=== PATIENT | female | born 1960 | race Caucasian/White ===

== ENCOUNTER 2022-01-18 22:14 | Inpatient (IN) | payer OTHER ==
[2022-01-18 22:45] LABS: Anisocytosis Slight; Basophils % (A) 0 %; Eosinophils # (A) 0.3 k/uL (0-0.7); Eosinophils % (A) 2 %; HCT 42.5 % (34.0-46.0); HGB 13.6 gm/dL (11.4-16.0); Hypochromasia Slight; Lymphocytes # (A) 0.8 k/uL (1.0-4.8); Lymphocytes % (A) 5 %; MCH 25.5 pg (25.0-35.0); MCHC 31.9 g/dL (31.0-37.0); Mean Platelet Volume 7.1; Monocytes # (A) 0.1 k/uL (0-1.0); Monocytes % (A) 1 %; Neutrophils % (A) 92 %; Platelet Count 321 k/uL (150-450); RBC 5.31 m/uL (3.80-5.40); RDW 16.4 % (11.5-15.5); WBC 15.2 k/uL (3.8-10.6)
[2022-01-18] MEDS ORDERED: NALOXONE 0.4 MG/ML 1 ML VIAL IV PRN (22:59)
--- NOTE | 2022-01-18 22:59 | ED ---
SOB HPI - General Chief Complaint: Shortness of Breath Stated Complaint: SOB, abn labs Time Seen by Provider: 01/18/22 22:20 Source: patient Mode of arrival: EMS Limitations: no limitations - History of Present Illness Initial Comments: 61-year-old female with past medical history of COPD, diabetes who presents to the emergency department as a transfer from [place]. She went into their facility earlier today stating that she was short of breath for the past couple of days. She has been using her nebulizer without any improvement in her sympto ms. She does not wear oxygen at home. She denies having any chest pain but admits to some chest pressure with her shortness of breath. No previous history of cardiac disease. At [facility] the patient was found to be hypoxic at 84%. She received 2 breathing treatments and 4 aspirins. The was found to have a troponin of 0.16. Due to N STEMI the patient was transferred for cardiology evaluation. Patient admits to improvement in her breathing. Currently on 2 L. Admits to chronic nonproductive cough. No fevers. No other alleviating, precipitating or modifying factors - Related Data Home Medications Medication Instructions Recorded Confirmed Albuterol Sulfate [Ventolin HFA] 2 puff INHALATION RT-Q4H PRN 01/19/22 01/19/22 Dextroamphetamine/Amphetamine 15 mg PO DAILY 01/19/22 01/19/22 [Adderall Xr 15 mg Capsule] Lurasidone [Latuda] 40 mg PO DAILY 01/19/22 01/19/22 Omeprazole Magnesium [PriLOSEC OTC] 20 mg PO DAILY PRN 01/19/22 01/19/22 Sertraline [Zoloft] 200 mg PO DAILY 01/19/22 01/19/22 metFORMIN HCL 500 mg PO BID 01/19/22 01/19/22 Previous Rx's Medication Instructions Recorded Aspirin 81 mg PO DAILY #90 tab 01/19/22 Clopidogrel [Plavix] 75 mg PO DAILY #90 tab 01/19/22 Albuterol Inhaler [Ventolin Hfa 2 puff INHALATION Q6H PRN #1 01/21/22 Inhaler] Atorvastatin [Lipitor] 80 mg PO HS #30 tab 01/21/22 Budesonide-Formot 160-4.5 Mcg 2 puff INHALATION RT-BID #1 each 01/21/22 [Symbicort 160-4.5 Mcg Inhaler] Furosemide [Lasix] 20 mg PO DAILY #30 tab 01/21/22 Ipratropium-Albuterol Nebulize 3 ml INHALATION RT-QID PRN #120 01/21/22 [Duoneb 0.5 mg-3 mg/3 ml Soln] each Metoprolol Succinate (ER) [Toprol 100 mg PO DAILY #30 tab 01/21/22 XL] Nitroglycerin Sl Tabs [Nitrostat] 0.4 mg SUBLINGUAL Q5M PRN #30 tab 01/21/22 lisinopriL [Zestril] 2.5 mg PO DAILY #30 tab 01/21/22 methylPREDNISolone Dose Pack 4 mg PO DIRECTED #1 packet 01/21/22 [Medrol Dose Pack] Allergies Allergy/AdvReac Type Severity Reaction Status Date / Time buspirone Allergy Unknown Verified 01/19/22 07:20 latex Allergy Unknown Verified 01/19/22 07:20 Review of Systems ROS Statement: Those systems with pertinent positive or pertinent negative responses have been documented in the HPI. ROS Other: All systems not noted in ROS Statement are negative. Past Medical History Past Medical History: Asthma, COPD, Diabetes Mellitus History of Any Multi-Drug Resistant Organisms: None Reported Past Psychological History: ADD/ADHD Smoking Status: Current every day smoker Past Alcohol Use History: None Reported Past Drug Use History: None Reported - Past Family History Mother Family Medical History: COPD General Exam Limitations: no limitations General appearance: alert, in no apparent distress Head exam: Present: atraumatic, normocephalic, normal inspection Eye exam: Present: normal appearance, PERRL, EOMI. Absent: scleral icterus, c onjunctival injection, periorbital swelling ENT exam: Present: normal exam, mucous membranes moist Neck exam: Present: normal inspection. Absent: tenderness, meningismus, lymphadenopathy Respiratory exam: Present: wheezes, other (tachynpnia). Absent: respiratory distress, rales, rhonchi, stridor Cardiovascular Exam: Present: normal rhythm, tachycardia, normal heart sounds. Absent: systolic murmur, diastolic murmur, rubs, gallop, clicks GI/Abdominal exam: Present: soft, normal bowel sounds. Absent: distended, tenderness, guarding, rebound, rigid Extremities exam: Present: normal inspection, full ROM, normal capillary refill. Absent: tenderness, pedal edema, joint swelling, calf tenderness Back exam: Present: normal inspection Neurological exam: Present: alert, oriented X3, CN II-XII intact Psychiatric exam: Present: normal affect, normal mood Skin exam: Present: warm, dry, intact, normal color. Absent: rash Course Vital Signs 01/18/22 01/19/22 01/19/22 22:17 00:06 01:07 Temperature 98.8 F Pulse Rate 109 H 101 H 113 H Pulse Rate [ Pulse Oximetery ] Respiratory 16 Rate Blood Pressure 150/96 Blood Pressure [Left Arm] O2 Sat by Pulse 90 L Oximetry 01/19/22 01/19/22 01/19/22 05:17 05:26 07:51 Temperature Pulse Rate 98 98 100 Pulse Rate [ Pulse Oximetery ] Respiratory Rate Blood Pressure Blood Pressure [Left Arm] O2 Sat by Pulse Oximetry 01/19/22 01/19/22 01/19/22 08:00 11:19 11:28 Temperature 97.9 F Pulse Rate 104 H 110 H 102 H Pulse Rate [ 110 H Pulse Oximetery ] Respiratory 20 Rate Blood Pressure Blood Pressure 110/67 [Left Arm] O2 Sat by Pulse 91 L Oximetry Medical Decision Making - Medical Decision Making Upon arrival patient was placed into room 6. Thorough history and physical exam was performed. Patient has no chest pain. I did review the patient's packet. Laboratory studies were completed in order to trend her troponin. She has already received aspirin, 2 albuterol tx, 125 mg of Solu-Medrol. Patient is resting comfortably in bed. She will be admitted to [facility] [place] [facility] - Lab Data Result diagrams: 01/20/22 11:07 01/20/22 11:07 Lab Results 01/18/22 01/18/22 01/18/22 Range/Units 22:35 22:35 22:35 WBC 15.2 H (3.8-10.6) k/uL RBC 5.31 (3.80-5.40) m/uL Hgb 13.6 (11.4-16.0) gm/dL Hct 42.5 (34.0-46.0) % MCV 80.0 (80.0-100.0) fL MCH 25.5 (25.0-35.0) pg MCHC 31.9 (31.0-37.0) g/dL RDW 16.4 H (11.5-15.5) % Plt Count 321 (150-450) k/uL MPV 7.1 Neutrophils % 92 % Lymphocytes % 5 % Monocytes % 1 % Eosinophils % 2 % Basophils % 0 % Neutrophils # 14.0 H (1.3-7.7) k/uL Lymphocytes # 0.8 L (1.0-4.8) k/uL Monocytes # 0.1 (0-1.0) k/uL Eosinophils # 0.3 (0-0.7) k/uL Basophils # 0.0 (0-0.2) k/uL Hypochromasia Slight Anisocytosis Slight Sodium 137 (137-145) mmol/L Potassium 4.1 (3.5-5.1) mmol/L Chloride 99 (98-107) mmol/L Carbon Dioxide 26 (22-30) mmol/L Anion Gap 12 mmol/L BUN 10 (7-17) mg/dL Creatinine 0.61 (0.52-1.04) mg/dL Est GFR (CKD-EPI)AfAm >90 (>60 ml/min/1.73 sqM) Est GFR (CKD-EPI)NonAf >90 (>60 ml/min/1.73 sqM) Glucose 167 H (74-99) mg/dL Calcium 8.9 (8.4-10.2) mg/dL Total Bilirubin 0.8 (0.2-1.3) mg/dL AST 19 (14-36) U/L ALT 18 (4-34) U/L Alkaline Phosphatase 100 (38-126) U/L Troponin I 0.129 H* (0.000-0.034) ng/mL Total Protein 7.2 (6.3-8.2) g/dL Albumin 4.2 (3.5-5.0) g/dL - EKG Data EKG Comments: EKG demonstrates a sinus tachycardia with a rate of 100. OH interval 130. Distress 98. QTC of 418. No acute ST segment elevations or depressions Disposition Clinical Impression: Hypoxia, Acute respiratory insufficiency, COPD (chronic obstructive pulmonary disease), NSTEMI (non-ST elevated myocardial infarction) Disposition: ADMITTED IP TO THIS HOSP Condition: Stable Is patient prescribed a controlled substance at d/c from ED?: No Time of Disposition: :59 Decision to Admit Reason: Admit from EC Decision Date: 01/18/22 Decision Time: 22:59
[2022-01-18 23:07] LABS: ALT 18 U/L (4-34); AST 19 U/L (14-36); African American GFR (CKD) >90 (>60 ml/min/1.73 sqM); Albumin 4.2 g/dL (3.5-5.0); Alkaline Phosphatase 100 U/L (38-126); Anion Gap 12 mmol/L; Blood Urea Nitrogen 10 mg/dL (7-17); Calcium 8.9 mg/dL (8.4-10.2); Carbon Dioxide 26 mmol/L (22-30); Chloride 99 mmol/L (98-107); Glucose 167 mg/dL (74-99); Non-African American GFR(CKD) >90 (>60 ml/min/1.73 sqM); Potassium 4.1 mmol/L (3.5-5.1); Sodium 137 mmol/L (137-145); Total Bilirubin 0.8 mg/dL (0.2-1.3); Total Protein 7.2 g/dL (6.3-8.2)
[2022-01-19] MEDS: IPRATROPIUM-ALBUTEROL 3 ML NEB INHALATION SCH ×7 (00:05→23:25)
--- NOTE | 2022-01-19 00:38 | P.HPIM ---
History of Present Illness H&P Date: 01/18/22 The patient is a 61-year-old female with a PMH of COPD, ongoing tobacco abuse, type II DM who was transferred from [facility] where the patient had presented earlier today due to gradually worsening shortness of breath. The patient reports that her breathing gradually worsened over the past 3-4 days. She reports attempting to use her inhalers multiple times without avail. R eports cough that is worse than usual, productive of yellow-green phlegm. While at [facility], the patient was noted to be hypoxic at 84% and also had an elevated troponin of 0.16. The patient was ultimately transferred to [facility] for cardiology evaluation. At time of interview, she reported that her breathing had improved significantly. She denied experiencing chest discomfort, nausea, vomiting, diaphoresis, or palpitations. Also denied fever, chills. Troponin in our emergency room was 0.129. EKG had revealed sinus tachycardia at 100 bpm with flattened T waves in leads V5 and V6. Laboratory evaluation was also remarkable for WBC count of 15.2 and glucose 167. Review of systems: Pertinent positives and negatives as discussed in HPI, a complete review of systems was performed and all other systems are negative. Physical examination: General: non toxic, no distress, appears older than stated age, morbidly obese Derm: no unusual rashes/lesions, warm Head: atraumatic, normocephalic, symmetric Eyes: EOMI, no lid lag, anicteric sclera, pupils equal round reactive to light ENT: Nose and ears atraumatic Neck: No cervical lymphadenopathy, trachea midline, supple Mouth: no lip lesion, mucus membranes moist Cardiovascular: S1S2 reg, no murmur, positive dorsalis pedis pulse bilateral, no edema Lungs: Somewhat poor air entry bilaterally with diffuse rhonchi, no accessory muscle use Abdominal: soft, nontender to palpation, no guarding Ext: muscle strength 5 out of 5 in all 4 extremities grossly, no gross muscle atrophy, no contractures, Neuro: CN II-XI grossly intact, no gross focal neuro deficits Psych: Alert, oriented, appropriate affect Assessment/plan Acute COPD exacerbation -Continue with DuoNeb's, Solu-Medrol -Supplemental oxygen Elevated troponin, suspect secondary to ongoing COPD exacerbation -Continue with aspirin, statin -Cardiology consulted -Cardiac monitoring -Echocardiogram -Trend troponin Chronic conditions: Type II DM -Insulin sliding scale and blood glucose monitoring -Check A1c DVT prophylaxis -Heparin subcu The patient is admitted with an anticipated greater than 2 midnight stay for evaluation of COPD exacerbation. CODE STATUS: Full Code Discussed with: Patient Anticipated discharge date: To [address]: Home Past Medical History Past Medical History: Asthma, COPD, Diabetes Mellitus History of Any Multi-Drug Resistant Organisms: None Reported Past Psychological History: ADD/ADHD Smoking Status: Current every day smoker Past Alcohol Use History: None Reported Past Drug Use History: None Reported - Past Family History Mother Family Medical History: COPD Medications and Allergies Allergies Allergy/AdvReac Type Severity Reaction Status Date / Time buspirone Allergy Unknown Verified 01/18/22 22:56 latex Allergy Unknown Verified 01/18/22 22:56 Physical Exam Vitals: Vital Signs Temp Pulse Resp BP Pulse Ox 01/19/22 00:06 101 H 01/18/22 22:17 98.8 F 109 H 16 150/96 90 L Intake and Output 01/18/22 01/18/22 01/19/22 14:59 22:59 06:59 Other: Weight 110.223 kg Results CBC & Chem 7: 01/18/22 22:35 01/18/22 22:35 Labs: Abnormal Lab Results - Last 24 Hours (Table) 01/18/22 01/18/22 01/18/22 Range/Units 22:35 22:35 22:35 WBC 15.2 H (3.8-10.6) k/uL RDW 16.4 H (11.5-15.5) % Neutrophils # 14.0 H (1.3-7.7) k/uL Lymphocytes # 0.8 L (1.0-4.8) k/uL Glucose 167 H (74-99) mg/dL Troponin I 0.129 H* (0.000-0.034) ng/mL
[2022-01-19] MEDS ORDERED: IPRATROPIUM-ALBUTEROL 3 ML NEB INHALATION PRN (01:29)
[2022-01-19] MEDS ORDERED: ATORVASTATIN 80 MG TAB PO SCH (01:45)
[2022-01-19] MEDS ORDERED: ASPIRIN 325 MG TAB PO SCH (01:45)
[2022-01-19 04:43] LABS: Anisocytosis Slight; Basophils % (A) 0 %; Eosinophils # (A) 0.1 k/uL (0-0.7); Eosinophils % (A) 1 %; HGB 13.3 gm/dL (11.4-16.0); Hypochromasia Slight; Lymphocytes % (A) 8 %; MCH 25.4 pg (25.0-35.0); MCHC 31.6 g/dL (31.0-37.0); MCV 80.2 fL (80.0-100.0); Mean Platelet Volume 7.5; Monocytes # (A) 0.1 k/uL (0-1.0); Monocytes % (A) 1 %; Neutrophils # (A) 11.2 k/uL (1.3-7.7); Neutrophils % (A) 90 %; Platelet Count 331 k/uL (150-450); RBC 5.24 m/uL (3.80-5.40); RDW 16.5 % (11.5-15.5); WBC 12.4 k/uL (3.8-10.6)
[2022-01-19 05:00] LABS: African American GFR (CKD) >90 (>60 ml/min/1.73 sqM); Anion Gap 9 mmol/L; Blood Urea Nitrogen 13 mg/dL (7-17); Calcium 8.9 mg/dL (8.4-10.2); Carbon Dioxide 28 mmol/L (22-30); Chloride 100 mmol/L (98-107); Glucose 169 mg/dL (74-99); Non-African American GFR(CKD) >90 (>60 ml/min/1.73 sqM); Potassium 4.5 mmol/L (3.5-5.1); Sodium 137 mmol/L (137-145)
[2022-01-19 05:22] LABS: Glucose,Whole Blood 174 mg/dL (70-110)
[2022-01-19 07:54] LABS: Glucose,Whole Blood 153 mg/dL (70-110)
[2022-01-19] MEDS: INSULIN ASPART (NovoLOG) 100 UNIT/ML VIAL SQ SCH ×4 (08:07→20:36)
[2022-01-19] MEDS: methylPREDNISolone SOD SUCCI 40 MG/ML 1 ML VIAL IV SCH ×2 (08:16→20:42)
[2022-01-19] MEDS: SERTRALINE 100 MG TAB PO SCH (08:17)
[2022-01-19] MEDS: PANTOPRAZOLE 40 MG TABLET PO SCH (08:17)
[2022-01-19] MEDS: ASPIRIN 81 MG PO SCH (08:17)
[2022-01-19] MEDS: HEPARIN SODIUM,PORCINE/PF 5,000 UNIT/0.5 ML SYRINGE SQ SCH ×2 (08:17→17:17)
[2022-01-19] MEDS: LURASIDONE 40 MG TAB PO SCH (08:17)
[2022-01-19] MEDS: NON FORMULARY DRUG (Dextroamphetamine/Amphetamine [Adderall Xr 15 Mg Capsule] 15 MG Cap.Er PO SCH (08:18)
[2022-01-19] MEDS ORDERED: ALPRAZolam 0.5 MG TAB PO PRN (09:14)
[2022-01-19] MEDS ORDERED: ALPRAZolam 0.25 MG TAB PO PRN (09:14)
[2022-01-19] MEDS ORDERED: ASPIRIN 325 MG TAB PO STA (09:14)
[2022-01-19] MEDS ORDERED: ATORVASTATIN 80 MG TAB PO STA (09:14)
[2022-01-19] MEDS ORDERED: NITROGLYCERIN SL TABS 0.4 MG TAB SUBLINGUAL PRN (09:14)
[2022-01-19] MEDS ORDERED: SODIUM CHLORIDE 0.9% 1,000 ML in EMPTY BAG 1 BAG IV SCH ×2 (09:15→13:00)
--- NOTE | 2022-01-19 09:49 | P.CRDCN ---
History of Present Illness History of present illness: HISTORY OF PRESENTING ILLNESS This is a pleasant 61-year-old female past medical history significant for type 2 diabetes, COPD/Asthma, chronic nicotine dependence, anxiety. She does not follow with a emergency medicine medical director. We have been asked to see in consultation for elevated troponin. She presents as a transfer from [place]. Patient states that about 3 days ago she noticed she was having worsening shortness of breath, more shortness of breath with activity such as walking to the bathroom. She states that she felt like she "couldnt get enough air". She also endorses intermittent chest pressure, with noticeable when walking to the bathroom. It is nonradiating. She also noticed worsening bilateral hand and feet swelling. She presents to the emergency room for further evaluation. She denies any palpitations, lightheadedness, dizziness, syncope or near-syncope. She does not wear oxygen at home normally. She denies any history of CAD, ID, stroke, seizures. She does currently smoke cigarettes, currently trying to quit. At [place] apparently her troponin was abnormal, no records available at this time. She was [facility] to [facility]. She denies any family history of cardiac disease. DIAGNOSTICS * EKG reveals sinus tachycardia, heart rate 100, nonspecific ST/T-wave abnormalities inferiorly. * Telemetry tracings indicate sinus tachycardia * Chest xray not available at this time of exam, no records to review * Laboratory reviewed, WBC 12.4, hemoglobin 13.3, platelets 331, troponin 0.12, 0.11, 0.09, sodium 137, potassium 4.5, BUN 13, serum creatinine 0.6, hemoglobin A1c 6.3 * Current home medications include atorvastatin 10 mg nightly, metformin, Addera ll, E, albuterol, Prilosec, Zoloft REVIEW OF SYSTEMS At the time of my exam: CONSTITUTIONAL: Denies fever or chills. CARDIOVASCULAR: Denies chest pain, shortness of breath, orthopnea, PND or palpitations. RESPIRATORY: Denies cough. GASTROINTESTINAL: Denies abdominal pain, diarrhea, constipation, nausea or vomiting. MUSCULOSKELETAL: Denies myalgias. NEUROLOGIC: Denies numbness, tingling, headacbe or weakness. ENDOCRINE: Denies fatigue, weight change, polydipsia or polyurina. GENITOURINARY: Denies burning, hematuria or urgency with micturation. HEMATOLOGIC: Denies history of anemia or bleeding. PHYSICAL EXAMINATION Blood pressure 110/67, heart rate 110, afebrile, oxygen saturation is 91% on 2 L nasal cannula CONSTITUTIONAL: No apparent distress. HEENT: Head is normocephalic. Pupils are equal, round. Sclerae anicteric. Mucous membranes of the mouth are moist. No JVD. No carotid bruit. CHEST EXAMINATION: Lungs are wheezing bilaterally to auscultation. No chest wall tenderness is noted on palpation or with deep breathing. HEART EXAMINATION: Regular rate and rhythm. S1, S2 heard. No murmurs, gallops or rub. ABDOMEN: Soft, nontender. Positive bowel sounds. EXTREMITIES: 2+ peripheral pulses, mild to moderate bilateral hand and bilateral lower extremity edema and no calf tenderness. NEUROLOGIC EXAMINATION: Patient is awake, alert and oriented x3. ASSESSMENT Elevated troponin, rule out NSTEMI Shortness of breath Acute hypoxic respiratory failure COPD exacerbation Type 2 diabetes Chronic nicotine dependence History of Anxiety PLAN Obtain chest xray Obtain 2D echocardiogram and doppler study to assess cardiac structure and function. Continue aspirin, statin Recommend cardiac catheterization, patient is agreeable I have discussed the risks, benefits and alternative therapies for the above- mentioned procedure and for both sedation/analgesia as well as necessary blood p roduct administration, if indicated, as they pertain to this patient. The patient has indicated understanding and acceptance of the risks and procedures discussed. Questions have been answered appropriately and she is agreeable to move forward with the above-stated procedure. Keep patient NPO Plan for cardiac catheterization with Dr. Stern today Further recommendations based on clinical course Nurse practitioner note has been reviewed by physician. Signing provider agrees with the documented findings, assessment, and plan of care. Past Medical History Past Medical History: Asthma, COPD, Diabetes Mellitus History of Any Multi-Drug Resistant Organisms: None Reported Past Psychological History: ADD/ADHD Smoking Status: Current every day smoker Past Alcohol Use History: None Reported Past Drug Use History: None Reported - Past Family History Mother Family Medical History: COPD Medications and Allergies Home Medications Medication Instructions Recorded Confirmed Type Albuterol Sulfate [Ventolin HFA] 2 puff INHALATION RT-Q4H PRN 01/19/22 01/19/22 History Atorvastatin [Lipitor] 10 mg PO HS 01/19/22 01/19/22 History Dextroamphetamine/Amphetamine 15 mg PO DAILY 01/19/22 01/19/22 History [Adderall Xr 15 mg Capsule] Lurasidone [Latuda] 40 mg PO DAILY 01/19/22 01/19/22 History Omeprazole Magnesium [PriLOSEC OTC] 20 mg PO DAILY PRN 01/19/22 01/19/22 History Sertraline [Zoloft] 200 mg PO DAILY 01/19/22 01/19/22 History metFORMIN HCL 500 mg PO BID 01/19/22 01/19/22 History Allergies Allergy/AdvReac Type Severity Reaction Status Date / Time buspirone Allergy Unknown Verified 01/19/22 07:20 latex Allergy Unknown Verified 01/19/22 07:20 Physical Exam Vitals: Vital Signs Temp Pulse Resp BP Pulse Ox 01/19/22 05:26 98 01/19/22 05:17 98 01/19/22 01:07 113 H 01/19/22 00:06 101 H 01/18/22 22:17 98.8 F 109 H 16 150/96 90 L Intake and Output 01/18/22 01/19/22 01/19/22 22:59 06:59 14:59 Other: Weight 110.223 kg Results 01/19/22 04:28 01/19/22 04:28 Cardiac Enzymes 01/18/22 01/18/22 01/19/22 Range/Units 22:35 22:35 01:07 AST 19 (14-36) U/L Troponin I 0.129 H* 0.114 H* (0.000-0.034) ng/mL 01/19/22 Range/Units 04:28 AST (14-36) U/L Troponin I 0.098 H* (0.000-0.034) ng/mL CBC 01/18/22 01/19/22 Range/Units 22:35 04:28 WBC 15.2 H 12.4 H (3.8-10.6) k/uL RBC 5.31 5.24 (3.80-5.40) m/uL Hgb 13.6 13.3 (11.4-16.0) gm/dL Hct 42.5 42.0 (34.0-46.0) % Plt Count 321 331 (150-450) k/uL Comprehensive Metabolic Panel 01/18/22 01/19/22 Range/Units 22:35 04:28 Sodium 137 137 (137-145) mmol/L Potassium 4.1 4.5 (3.5-5.1) mmol/L Chloride 99 100 (98-107) mmol/L Carbon Dioxide 26 28 (22-30) mmol/L BUN 10 13 (7-17) mg/dL Creatinine 0.61 0.69 (0.52-1.04) mg/dL Glucose 167 H 169 H (74-99) mg/dL Calcium 8.9 8.9 (8.4-10.2) mg/dL AST 19 (14-36) U/L ALT 18 (4-34) U/L Alkaline Phosphatase 100 (38-126) U/L Total Protein 7.2 (6.3-8.2) g/dL Albumin 4.2 (3.5-5.0) g/dL Current Medications Generic Name Dose Route Start Last Admin Trade Name Freq PRN Reason Stop Dose Admin Albuterol/Ipratropium 3 ml 01/19/22 00:00 01/19/22 05:17 Ipratropium-Albuterol 3 Ml Neb INHALATION 3 ml RT-Q4H GREGG Administration Albuterol/Ipratropium 3 ml 01/19/22 01:29 Ipratropium-Albuterol 3 Ml Neb INHALATION RT-QID PRN Shortness Of Breath Or Wheezing Aspirin 325 mg 01/19/22 01:45 01/19/22 02:13 Aspirin 325 Mg Tab PO 325 mg DAILY GREGG Administration Atorvastatin Calcium 80 mg 01/19/22 01:45 01/19/22 02:13 Atorvastatin 80 Mg Tab PO 80 mg HS GREGG Administration Heparin Sodium (Porcine) 5,000 unit 01/19/22 08:00 Heparin Sodium,Porcine/Pf 5,000 Unit/0.5 Ml Syringe SQ Q8HR GREGG Insulin Aspart 0 unit 01/19/22 07:30 Insulin Aspart (Novolog) 100 Unit/Ml Vial SQ A[facility]S [facility] Protocol Methylprednisolone Sodium Succinate 40 mg 01/19/22 09:00 Methylprednisolone Sod Succi 40 Mg/Ml 1 Ml Vial IV BID GREGG Naloxone HCl 0.2 mg 01/18/22 22:59 Naloxone 0.4 Mg/Ml 1 Ml Vial IV Q2M PRN Opioid Reversal Intake and Output 01/18/22 01/19/22 01/19/22 22:59 06:59 14:59 Other: Weight 110.223 kg 01/19/22 04:28 01/19/22 04:28
--- NOTE | 2022-01-19 10:58 | XR ---
EXAMINATION TYPE: XR chest 1V portable DATE OF EXAM: 01/19/2022 COMPARISON: Chest x-ray 01/18/2022 from outside hospital is unavailable HISTORY: Shortness of breath TECHNIQUE: Single frontal view of the chest is obtained. FINDINGS: There is no focal air space opacity, pleural effusion, or pneumothorax seen. The cardiac silhouette size is within normal limits. There are overlying leads and the patient is rotated. Postop changes in the cervical spine. Question some interstitial prominence. Apical lucencies are present. The osseous structures are intact. IMPRESSION: No acute process. There may be underlying COPD. Rotated exam. Exam somewhat limited tech nically, consider PA and lateral chest x-ray for better evaluation
[2022-01-19] MEDS: METOPROLOL TARTRATE 25 MG TAB PO SCH ×2 (10:59→20:43)
[2022-01-19] MEDS ORDERED: MIDAZOLAM 2 MG/2 ML VIAL IV ONE ×2 (11:58→12:17)
[2022-01-19] MEDS ORDERED: LIDOCAINE 1% INJ 10MG/ML (30 ML VIAL-PF) SQ ONE (11:59)
[2022-01-19] MEDS ORDERED: VERAPAMIL SYRINGE (5 MG/10 ML) INTRAARTER ONE (12:02)
[2022-01-19] MEDS ORDERED: SODIUM CHLORIDE 0.9% 1,000 ML IV ONE (12:03)
[2022-01-19] MEDS ORDERED: HEPARIN SODIUM 1,000 UN/ML (10ML VL) IV ONE ×3 (12:03→12:51)
[2022-01-19] MEDS ORDERED: CLOPIDOGREL 75 MG TAB PO ONE (12:20)
[2022-01-19] MEDS ORDERED: NITROGLYCERIN 1000MCG/10ML SYRINGE INTRACORON ONE (12:27)
[2022-01-19] MEDS ORDERED: IOPAMIDOL-370 125ML BTL INJ ONE (12:29)
[2022-01-19] MEDS ORDERED: ALBUTEROL NEBULIZED 2.5 MG/3 ML INHALATION PRN (12:38)
[2022-01-19] MEDS ORDERED: RX INFO: IV CONTRAST WAS GIVEN 1 EACH MISC MISCELLANE PRN (12:39)
[2022-01-19] MEDS ORDERED: ZOLPIDEM 5 MG TAB PO PRN (12:39)
[2022-01-19] MEDS ORDERED: MAG HYDROX/AL HYDROX/SIMETH 30 ML CUP PO PRN (12:39)
[2022-01-19] MEDS ORDERED: ATROPINE SULFATE 0.1 MG/ML 10ML SYRINGE IV PRN (12:39)
--- NOTE | 2022-01-19 13:01 | P.PCN ---
Date of Procedure: 01/19/22 Operative Findings: CARDIAC CATHETERIZATION AND PERCUTANEOUS CORONARY INTERVENTION PERFORMING PHYSICIAN: Shaun Stern MD, [facility] PROCEDURE PERFORMED: 1. Selective right and left coronary angiogram 2. Left heart catheterization 3. Successful stenting of mid RCA using 5.0 x 23 mm Xience WALTER which with an excellent angiographic results 4. Aspiration thrombectomy from the right coronary artery using the export catheter INDICATION: Acute non-ST patient myocardial infarction in to 7-year-old female patient with diabetes and smoking who presented to the hospital with chest discomfort and shortness of breath. COMPLICATION: None APPROACH: Right radial artery LEVEL OF SEDATION: Moderate with the sedation time off 41 minutes PROCEDURE DESCRIPTION: After obtaining an informed consent the patient was brought to the cardiac laborer mine. The right radial artery was cannulated using micropuncture technique, the micropuncture wire passed easily then I placed a 6-Liberian sheath in the right radial artery. I gave the patient at that 0.2 mg of verapamil intra-arterial and initially 5000 use of heparin IV with additional 7000 given during the procedure with continuous ACT monitoring. Selective right and left coronary angiogram performed using JR4 and JL 3.5 catheters. Left heart catheterization was performed using the JR4 catheter which across aortic valve then I did pulled back across the valve after the catheter was flushed. Then after that we intervene on the RCA. SELECTIVE CORONARY ANGIOGRAM: The right coronary artery: Large caliber vessel and a dominant vessel. The RCA in the midportion appears to have thrombotic lesion appears to be in the range of 99.9%. The RCA distally is angiographically normal and bifurcates into PDA and PLV branches both appeared to be angiographically normal Left main: Is angiographically normal. Bifurcates into an LCx and LAD The left circumflex: Large caliber vessel. The LCx itself has mild disease only. Gives rises into the first OM branch which appeared to have mild disease only. The circumflex continue after that as a small-caliber vessel in the AV groove The left anterior descending artery: Large caliber vessel. The LAD has mild disease only. Gives rise into a large diagonal branch which appeared to be angiographically normal. HEMODYNAMICS: The LVEDP was 27 mmHg was no significant gradient across aortic valve PCI OF THE RCA: Anticoagulation was initiated using heparin with continuous ACT monitoring as described above. The RCA was engaged using JR4 guide. This was well using a run-through wire. We did aspiration thrombectomy from the right coronary artery with extraction of 2 large pieces 1 red thrombus and 1 white thrombus. Subsequently I did direct stenting of the lesion in the mid RCA using 5.0 x 23 mm stent where the stent was positioned under fluoroscopy guidance and deployed under 10 paige for 20 seconds. The following angiogram showed good angiographic results and the procedure was completed without any complication CONCLUSION: #1 critical thrombotic lesion involving the mid right coronary artery. I did successful stenting of the RCA as described above #2 mild disease involving the left coronary system #3 mildly elevated left-sided filling pressure POSTPROCEDURE MANAGEMENT: #1 dual antiplatelet therapy using aspirin and Plavix for at least 12 months #2 aggressive cholesterol control #3 follow-up with the patient
--- NOTE | 2022-01-19 14:45 | P.CNPUL ---
History of Present Illness Consult date: 01/19/22 Requesting physician: Ruben Vital Reason for consult: dyspnea, cough, chest pain, hypoxemia Chief complaint: Shortness of breath and chest pain. History of present illness: Pulmonary consult dated 01/19/2022. 61-year-old obese female, with a history of COPD, and ongoing tobacco use, as well as diabetes, was transferred down from [facility], for evaluation and our emergency department. The patient is seen in room 22, and complains of increasing shortness of breath. In addition, the patient had some chest discomfort. She apparently was using her breathing medications, without benefit. She was also coughing, producing yellow/green phlegm. Her saturations at the outside hospital were only 84%. In addition, she had an elevated troponin level. For that reason, she was sent down for evaluation, and possible cardiac catheterization. She denied any fever or chills. She was on 2 L in the emergency room. She was getting saline at 110 mL an hour. She complained of shortness of breath, chest pain, and leg swelling. Laboratory data includes a white count of 12.4, hemoglobin 13.3, hematocrit 42, and a platelet count of 331,000. Sodium 137, potassium 4.5, chlorides 100, CO2 28, anion gap 9, BUN 13, creatinine 0.69. Glucose 153. Troponins were 0.11 and 0.098. N-terminal proBNP was elevated at 1010. Chest x-ray showed no acute process, and was consistent with COPD. The patient had a cardiac catheterization which showed a critical thrombotic lesion involving the mid right coronary artery, which apparently was successfully stented. She also had mild disease involving the left coronary system, and a mildly elevated left-sided filling pressure area he was recommended to have dual antiplatelet therapy, using both aspirin and Plavix, as well as aggressive cholesterol control. Review of Systems REVIEW OF SYSTEMS: CONSTITUTIONAL: [Negative.] NEUROLOGIC: [ Negative.] HEENT: [ Negative.] CARDIAC: Chest discomfort. Lower extremity edema. PULMONARY: Shortness of breath, with productive cough. GI: [Negative.] : [Negative.] RHEUMATOLOGIC: [ Negative.] IMMUNOLOGIC: [ Negative.] ENDOCRINE: [Negative. ] DERMATOLOGIC: [Negative.] Past Medical History Past Medical History: Asthma, COPD, Diabetes Mellitus History of Any Multi-Drug Resistant Organisms: None Reported Past Psychological History: ADD/ADHD Smoking Status: Current every day smoker Past Alcohol Use History: None Reported Past Drug Use History: None Reported - Past Family History Mother Family Medical History: COPD Medications and Allergies Home Medications Medication Instructions Recorded Confirmed Type Albuterol Sulfate [Ventolin HFA] 2 puff INHALATION RT-Q4H PRN 01/19/22 01/19/22 History Aspirin 81 mg PO DAILY #90 tab 01/19/22 Rx Atorvastatin [Lipitor] 10 mg PO HS 01/19/22 01/19/22 History Clopidogrel [Plavix] 75 mg PO DAILY #90 tab 01/19/22 Rx Dextroamphetamine/Amphetamine 15 mg PO DAILY 01/19/22 01/19/22 History [Adderall Xr 15 mg Capsule] Lurasidone [Latuda] 40 mg PO DAILY 01/19/22 01/19/22 History Omeprazole Magnesium [PriLOSEC OTC] 20 mg PO DAILY PRN 01/19/22 01/19/22 History Sertraline [Zoloft] 200 mg PO DAILY 01/19/22 01/19/22 History metFORMIN HCL 500 mg PO BID 01/19/22 01/19/22 History Allergies Allergy/AdvReac Type Severity Reaction Status Date / Time buspirone Allergy Unknown Verified 01/19/22 07:20 latex Allergy Unknown Verified 01/19/22 07:20 Physical Exam Osteopathic Statement: *. No significant issues noted on an osteopathic structural exam other than those noted in the History and Physical/Consult. Vitals: Vital Signs Temp Pulse Pulse Pulse Resp BP BP 01/19/22 14:05 109 H 16 116/66 01/19/22 13:35 100 18 116/66 01/19/22 13:20 102 H 18 130/73 01/19/22 13:05 91 18 128/73 01/19/22 12:50 88 18 132/70 01/19/22 11:28 102 H 01/19/22 11:19 110 H 01/19/22 08:00 97.9 F 104 H 110 H 20 110/67 01/19/22 07:51 100 01/19/22 05:26 98 01/19/22 05:17 98 01/19/22 01:07 113 H 01/19/22 00:06 101 H 01/18/22 22:17 98.8 F 109 H 16 150/96 Pulse Ox 01/19/22 14:05 92 L 01/19/22 13:35 94 L 01/19/22 13:20 94 L 01/19/22 13:05 94 L 01/19/22 12:50 94 L 01/19/22 11:28 01/19/22 11:19 01/19/22 08:00 91 L 01/19/22 07:51 01/19/22 05:26 01/19/22 05:17 01/19/22 01:07 01/19/22 00:06 01/18/22 22:17 90 L Intake and Output 01/18/22 01/19/22 01/19/22 22:59 06:59 14:59 Other: Weight 110.223 kg No acute distress, oriented 3. The patient's currently on 2 L, with a satur ation of 94%. HEENT examination is grossly unremarkable. Neck supple. Full range of motion. No adenopathy thyromegaly or neck vein distention. Cardiovascular examination reveals regular rhythm rate. S1-S2 normal. No S3 or S4. No discernible murmur noted. Heart sounds are distant. Heart rate 100 bpm. Lungs reveal diffuse mild to moderate expiratory rhonchi and expiratory wheezes. No crackles. Breath sounds equal bilaterally. Abdomen soft bowel sounds are heard. No masses or tenderness. Extremities are intact. No cyanosis or clubbing. Mild edema is present. Skin is without rash or lesion. Neurologic examination is brief but nonfocal. Results - Laboratory Findings CBC and BMP: 01/19/22 04:28 01/19/22 04:28 Abnormal lab findings: Abnormal Labs 01/18/22 01/18/22 01/18/22 22:35 22:35 22:35 WBC 15.2 H RDW 16.4 H Neutrophils # 14.0 H Lymphocytes # 0.8 L Glucose 167 H POC Glucose (mg/dL) Hemoglobin A1c Troponin I 0.129 H* 01/19/22 01/19/22 01/19/22 01:07 04:28 04:28 WBC 12.4 H RDW 16.5 H Neutrophils # 11.2 H Lymphocytes # Glucose POC Glucose (mg/dL) Hemoglobin A1c Troponin I 0.114 H* 0.098 H* 01/19/22 01/19/22 01/19/22 04:28 04:28 05:19 WBC RDW Neutrophils # Lymphocytes # Glucose 169 H POC Glucose (mg/dL) 174 H Hemoglobin A1c 6.3 H Troponin I 01/19/22 07:52 WBC RDW Neutrophils # Lymphocytes # Glucose POC Glucose (mg/dL) 153 H Hemoglobin A1c Troponin I - Diagnostic Findings Chest x-ray: image reviewed Assessment and Plan Assessment: Status post successful stenting of the mid right coronary artery. Shortness of breath, secondary to a COPD exacerbation. Non-ST segment elevation myocardial infarction, acute. History of ongoing tobacco use with nicotine addiction. History of hyperlipidemia. History of diabetes mellitus. Obesity. ADHD. Plan: Plan dated 01/19/2022. The patient is seen and examined in room 22, and emergency room. The patient's currently on a couple liters of oxygen. The patient had a cardiac catheterization, and had stenting of the right coronary artery. The patient continues on Solu-Medrol, 40 mg twice a day. The patient's also on albuterol and Atrovent updrafts. We'll add some Symbicort 160/4.5, 2 puffs twice a day. We will continue to follow the patient make recommendations were appropriate. The patient is counseled about the importance of smoking cessation. No additional recommendations are made. Time with Patient: Greater than 30
[2022-01-19] MEDS ORDERED: NICOTINE 14MG/24HR PATCH TRANSDERM STA (15:26)
--- NOTE | 2022-01-19 16:36 | P.PN ---
Subjective Progress Note Date: 01/19/22 The patient is a 61-year-old female with a PMH of COPD, ongoing tobacco abuse, type II DM who was transferred from [facility] where the patient had presented earlier today due to gradually worsening shortness of breath. Reports cough that is worse than usual, productive of yellow-green phlegm. While at [facility], the patient was noted to be hypoxic at 84% and also had an elevated troponin of 0.16. The patient was ultimately transferred to [facility] for cardiology evaluation. Troponin in our emergency room was 0.129, 0.114, 0.098 with EKG had revealed sinus tachycardia at 100 bpm with flattened T waves in leads V5 and V6. Laboratory evaluation was also remarkable for WBC count of 15.2 and glucose 167. Patient underwent cardiac catheterization with stent placement to the RCA. Patient was seen and examined prior to cardiac cath. She reports improvement in her breathing since admission. She is currently on 3 L is a candidal saturating 91%. States that she is 75% back to baseline. General: non toxic, no distress, appears at stated age Derm: warm, dry Head: atraumatic, normocephalic, symmetric Eyes: EOMI, no lid lag, anicteric sclera Mouth: no lip lesion, mucus membranes moist Cardiovascular: S1S2 reg, no murmur, positive posterior tibial pulse bilateral Lungs: Decreased breath sounds bilateral, no rhonchi, no rales , no accessory muscle use Ext: no gross muscle atrophy, no edema, no contractures Neuro: no focal neuro deficits Psych: Alert, oriented, appropriate affect #Acute COPD exacerbation Continue DuoNeb scheduled and as needed for shortness of breath and wheezing. Continue Solu-Medrol. Continue Symbicort. Supplemental O2 to maintain O2 saturation greater than 92%. Telemetry monitoring. Pulmonology on board. #Non-ST elevation [place] Cardiac status post stent placement to the RCA. Patient started on aspirin and Lipitor. Started on Plavix. Started on metoprolol. Follow-up echocardiogram. Cardiology on board. #Type II DM A1c 6.3. Insulin sliding scale and blood glucose monitoring along with hypoglycemic precautions. #ADHD Continue Adderall. #Morbid obesity Patient will benefit from structured weight loss program. DVT prophylaxis: Heparin Discussed with: Patient, nursing Anticipated discharge: [address]: Home A total of 35 minutes was spent on the care of this complex patient more than 50 % of the time was spent in counseling and care coordination. Objective - Vital Signs Vital signs: Vital Signs Temp 97.9 F 01/19/22 08:00 Pulse 110 H 01/19/22 14:33 Resp 16 01/19/22 14:33 BP 121/72 01/19/22 14:33 Pulse Ox 92 L 01/19/22 14:33 FiO2 Intake & Output 01/18/22 01/19/22 01/19/22 18:59 06:59 18:59 Intake Total 200 Balance 200 Weight 110.223 kg Intake: IV 200 - Labs CBC & Chem 7: 01/19/22 04:28 01/19/22 04:28 Labs: Abnormal Lab Results - Last 24 Hours (Table) 01/18/22 01/18/22 01/18/22 Range/Units 22:35 22:35 22:35 WBC 15.2 H (3.8-10.6) k/uL RDW 16.4 H (11.5-15.5) % Neutrophils # 14.0 H (1.3-7.7) k/uL Lymphocytes # 0.8 L (1.0-4.8) k/uL Glucose 167 H (74-99) mg/dL POC Glucose (mg/dL) (70-110) mg/dL Hemoglobin A1c (0.0-6.0) % Troponin I 0.129 H* (0.000-0.034) ng/mL 01/19/22 01/19/22 01/19/22 Range/Units 01:07 04:28 04:28 WBC 12.4 H (3.8-10.6) k/uL RDW 16.5 H (11.5-15.5) % Neutrophils # 11.2 H (1.3-7.7) k/uL Lymphocytes # (1.0-4.8) k/uL Glucose (74-99) mg/dL POC Glucose (mg/dL) (70-110) mg/dL Hemoglobin A1c (0.0-6.0) % Troponin I 0.114 H* 0.098 H* (0.000-0.034) ng/mL 01/19/22 01/19/22 01/19/22 Range/Units 04:28 04:28 05:19 WBC (3.8-10.6) k/uL RDW (11.5-15.5) % Neutrophils # (1.3-7.7) k/uL Lymphocytes # (1.0-4.8) k/uL Glucose 169 H (74-99) mg/dL POC Glucose (mg/dL) 174 H (70-110) mg/dL Hemoglobin A1c 6.3 H (0.0-6.0) % Troponin I (0.000-0.034) ng/mL 01/19/22 Range/Units 07:52 WBC (3.8-10.6) k/uL RDW (11.5-15.5) % Neutrophils # (1.3-7.7) k/uL Lymphocytes # (1.0-4.8) k/uL Glucose (74-99) mg/dL POC Glucose (mg/dL) 153 H (70-110) mg/dL Hemoglobin A1c (0.0-6.0) % Troponin I (0.000-0.034) ng/mL
[2022-01-19 16:52] LABS: Glucose,Whole Blood 128 mg/dL (70-110)
[2022-01-19 19:46] LABS: Glucose,Whole Blood 132 mg/dL (70-110)
[2022-01-19] MEDS: SYMBICORT 160-4.5 MCG INHALER INHALATION SCH (20:13)
[2022-01-19] MEDS: ATORVASTATIN 80 MG TAB PO SCH (20:43)
[2022-01-19] MEDS ORDERED: ATORVASTATIN 10 MG TAB PO SCH (21:00)
--- NOTE | 2022-01-19 21:59 | CA ---
Transthoracic Echo Report Name: Klarissa Dash Age: 61 Gender: F : 1960 Exam Date: 01/19/2022 07:55 Exam Location: [place] [facility] Ht (in): 61 Wt (lb): 243 Ordering Physician: Jeana Wooten DO Attending/Referring Phys: Photographic Engineer Maye Negrete RDCS Procedure CPT: Indications: nstemi Cardiac Hx: Technical Quality: Poor Contrast 1: Total Dose (mL): Contrast 2: Total Dose (mL): MEASUREMENTS (Male / Female) Normal Values 2D ECHO LV Diastolic Diameter PLAX 5.0 cm 4.2 - 5.9 / 3.9 - 5.3 cm LV Systolic Diameter PLAX 3.4 cm IVS Diastolic Thickness 1.5 cm 0.6 - 1.0 / 0.6 - 0.9 cm LVPW Diastolic Thickness 1.5 cm 0.6 - 1.0 / 0.6 - 0.9 cm LV Relative Wall Thickness 0.6 RV Internal Dim ED PLAX 2.7 cm LA Systolic Diameter LX 3.4 cm 3.0 - 4.0 / 2.7 - 3.8 cm LA Volume 52.4 cm??? 18 - 58 / 22 - 52 cm??? M-MODE Aortic Root Diameter MM 2.8 cm MV E Point Septal Separation 1.0 cm AV Cusp Separation MM 1.9 cm DOPPLER AV Peak Velocity 201.7 cm/s AV Peak Gradient 16.3 mmHg MV Area PHT 3.7 cm??? Mitral E Point Velocity 119.7 cm/s Mitral A Point Velocity 128.5 cm/s Mitral E to A Ratio 0.9 MV Deceleration Time 203.2 ms MV E' Velocity 8.5 cm/s Mitral E to MV E' Ratio 14.1 FINDINGS Left Ventricle Left ventricular ejection fraction is estimated at 55-60 %. Moderately increased septal wall thickness. Moderately increased posterior wall thickness. Left ventricular cavity size normal. Right Ventricle Normal right ventricular size and function. Unable to estimate the right ventricular systolic pressure. Right Atrium Normal right atrial size. Left Atrium Normal left atrial size. No evidence for an atrial septal defect. Mitral Valve Structurally normal mitral valve. Mild mitral regurgitation. Aortic Valve Trileaflet aortic valve. No aortic valve stenosis or regurgitation. Tricuspid Valve Tricuspid valve not well visualized. Pulmonic Valve Pulmonic valve not well visualized. Pericardium Normal pericardium. No pericardial effusion. Aorta Normal size aortic root and proximal ascending aorta. CONCLUSIONS LVH with preserved systolic function Left radical ejection fraction normal, 55-60% Previewed by: Dr. Richar Velez MD (Electronically Signed) Final Date: 19 January 2022 21:59
[2022-01-20] MEDS: HEPARIN SODIUM,PORCINE/PF 5,000 UNIT/0.5 ML SYRINGE SQ SCH ×3 (00:05→15:16)
[2022-01-20] MEDS: IPRATROPIUM-ALBUTEROL 3 ML NEB INHALATION SCH ×6 (04:11→23:50)
[2022-01-20] MEDS ORDERED: FLUTICASONE 50MCG/SPRAY NASAL 16GM EA NOSTRIL PRN (04:44)
[2022-01-20 06:02] LABS: Glucose,Whole Blood 123 mg/dL (70-110)
[2022-01-20] MEDS: INSULIN ASPART (NovoLOG) 100 UNIT/ML VIAL SQ SCH ×4 (06:11→20:17)
[2022-01-20] MEDS: PANTOPRAZOLE 40 MG TABLET PO SCH (06:12)
--- NOTE | 2022-01-20 06:34 | P.PN ---
Subjective Progress Note Date: 01/20/22 Principal diagnosis: Acute coronary syndrome This is a apu-dicy-bse female patient with diabetes and smoking overweight who presented to the hospital with a chest discomfort and shortness of breath and ruled in for acute coronary syndrome. She underwent a heart catheterization and was found to have a critical disease involving the RCA which was stented. The LVEDP was elevated as well. 01/20/2022 She was sitting this morning. She has been experiencing cough productive of sputum. Pulmonary is on the case. Otherwise she has no chest pain and the shortness of breath has improved. She still hypoxic and requiring 2 L of oxygen to keep saturation above 90. Currently she is on dual antiplatelet therapy along with high intensity statin. She remains slightly tachycardic. I am going to DC metoprolol tartrate and start her on metoprolol succinate The echo revealed no wall motion abnormalities with preserved left ventricular systolic function. I advised monitor the patient for additional 24 hours. Also in the light of elevated left-sided filling pressure start the patient on Lasix 20 mg by mouth daily. Continue monitor the kidney function and electrolytes. Co ntinue following up with the patient Objective - Vital Signs Vital signs: Vital Signs Temp 98.2 F 01/19/22 20:00 Pulse 106 H 01/20/22 05:24 Resp 22 01/20/22 04:00 BP 160/88 01/20/22 04:00 Pulse Ox 93 L 01/20/22 04:00 FiO2 Intake & Output 01/19/22 01/19/22 01/20/22 06:59 18:59 06:59 Intake Total 200 1970 Balance 200 1970 Weight 110.223 kg 110.223 kg Intake: IV 200 Intake, IV Titration 1000 Amount Sodium Chloride 0.9% 1, 1000 000 ml In Empty Bag 1 bag @ 1 ML/KG/HR 110.223 mls /hr IV .Q9H5M [facility] Rx#: [id number] Oral 0 970 Other: Voiding Method Toilet # Voids 2 - Constitutional General appearance: Present: no acute distress - Respiratory Respiratory: bilateral: diminished - Cardiovascular Rhythm: regular - Labs CBC & Chem 7: 01/19/22 04:28 01/19/22 04:28 Labs: Abnormal Lab Results - Last 24 Hours (Table) 01/19/22 01/19/22 01/19/22 Range/Units 04:28 07:52 16:48 POC Glucose (mg/dL) 153 H 128 H (70-110) mg/dL Hemoglobin A1c 6.3 H (0.0-6.0) % 01/19/22 01/20/22 Range/Units 19:45 06:01 POC Glucose (mg/dL) 132 H 123 H (70-110) mg/dL Hemoglobin A1c (0.0-6.0) % Assessment and Plan Assessment: Assessment Acute coronary syndrome Smoking Diabetes Preserved LV function Plan Continue dual antiplatelet therapy DC metoprolol tartrate and start the patient on metoprolol succinate Start the patient on Lasix Monitor the patient for additional 24 hours Follow-up with the patient
[2022-01-20] MEDS ORDERED: HEPARIN SODIUM,PORCINE 10,000 UNIT in SODIUM CHLORIDE 0.9% 1,000 ML IRRIGATION PRN (07:00)
[2022-01-20] MEDS ORDERED: HEPARIN SODIUM,PORCINE 2,500 UNIT in SODIUM CHLORIDE 0.9% 250 ML IRRIGATION PRN (07:00)
[2022-01-20] MEDS: SYMBICORT 160-4.5 MCG INHALER INHALATION SCH ×2 (08:40→19:41)
[2022-01-20] MEDS ORDERED: METOPROLOL SUCCINATE (ER) 50 MG TAB.ER.24H PO SCH (09:00)
[2022-01-20] MEDS: NON FORMULARY DRUG (Dextroamphetamine/Amphetamine [Adderall Xr 15 Mg Capsule] 15 MG Cap.Er PO SCH (09:37)
[2022-01-20] MEDS: FUROSEMIDE 20 MG TAB PO SCH (09:47)
[2022-01-20] MEDS: LURASIDONE 40 MG TAB PO SCH (09:47)
[2022-01-20] MEDS: SERTRALINE 100 MG TAB PO SCH (09:48)
[2022-01-20] MEDS: methylPREDNISolone SOD SUCCI 40 MG/ML 1 ML VIAL IV SCH ×2 (09:48→20:27)
[2022-01-20] MEDS: ASPIRIN 81 MG PO SCH (09:48)
[2022-01-20] MEDS: CLOPIDOGREL 75 MG TAB PO SCH (09:48)
[2022-01-20 11:34] LABS: Glucose,Whole Blood 99 mg/dL (70-110)
--- NOTE | 2022-01-20 11:50 | P.PN ---
Subjective Progress Note Date: 01/20/22 The patient is a 61-year-old female with a PMH of COPD, ongoing tobacco abuse, type II DM who was transferred from [facility] where the patient had presented earlier today due to gradually worsening shortness of breath. Reports cough that is worse than usual, productive of yellow-green phlegm. While at [facility], the patient was noted to be hypoxic at 84% and also had an elevated troponin of 0.16. The patient was ultimately transferred to [facility] for cardiology evaluation. Troponin in our emergency room was 0.129, 0.114, 0.098 with EKG had revealed sinus tachycardia at 100 bpm with flattened T waves in leads V5 and V6. Laboratory evaluation was also remarkable for WBC count of 15.2 and glucose 167. Patient underwent cardiac catheterization with stent placement to the RCA. Patient was seen and examined. She reports improvement in her breathing since admission. She is currently on 3 L is saturating 91%. General: non toxic, no distress, appears at stated age Derm: warm, dry Head: atraumatic, normocephalic, symmetric Eyes: EOMI, no lid lag, anicteric sclera Mouth: no lip lesion, mucus membranes moist Cardiovascular: S1S2 reg, no murmur, positive posterior tibial pulse bilateral Lungs: Decreased breath sounds bilateral, no rhonchi, no rales , no accessory muscle use Ext: no gross muscle atrophy, no edema, no contractures Neuro: no focal neuro deficits Psych: Alert, oriented, appropriate affect #Acute COPD exacerbation Continue DuoNeb scheduled and as needed for shortness of breath and wheezing. Continue Solu-Medrol. Continue Symbicort. Supplemental O2 to maintain O2 saturation greater than 92%. Telemetry monitoring. Pulmonology on board. #Non-ST elevation CT Cardiac status post stent placement to the RCA. Continue aspirin and Lipitor. Continue Plavix. Continue metoprolol. Echo shows EF 55-60% with LVH. Cardiology on board. #Type II DM A1c 6.3. Insulin sliding scale and blood glucose monitoring along with hypoglycemic precautions. #ADHD Continue Adderall. #Morbid obesity Patient will benefit from structured weight loss program. DVT prophylaxis: Heparin Discussed with: Patient, nursing Anticipated discharge: [address]: Home A total of 35 minutes was spent on the care of this complex patient more than 50% of the time was spent in counseling and care coordination. Cardiology recommends one more day of observation. She will need home O2 evaluation prior to discharge. Anticipate DC tomorrow. Objective - Vital Signs Vital signs: Vital Signs Temp 98.1 F 01/20/22 09:45 Pulse 103 H 01/20/22 09:45 Resp 20 01/20/22 09:45 BP 152/80 01/20/22 09:45 Pulse Ox 93 L 01/20/22 09:45 FiO2 Intake & Output 01/19/22 01/20/22 01/20/22 18:59 06:59 18:59 Intake Total 200 1970 0 Balance 200 1970 0 Weight 110.223 kg Intake: IV 200 Intake, IV Titration 1000 Amount Sodium Chloride 0.9% 1, 1000 000 ml In Empty Bag 1 bag @ 1 ML/KG/HR 110.223 mls /hr IV .Q9H5M [facility] Rx#: [id number] Oral 0 970 0 Other: Voiding Method Toilet # Voids 2 - Labs CBC & Chem 7: 01/19/22 04:28 01/19/22 04:28 Labs: Abnormal Lab Results - Last 24 Hours (Table) 01/19/22 01/19/22 01/20/22 Range/Units 16:48 19:45 06:01 POC Glucose (mg/dL) 128 H 132 H 123 H (70-110) mg/dL
[2022-01-20 12:15] LABS: Anisocytosis Slight; Basophils % (A) 0 %; Eosinophils % (A) 0 %; HCT 41.4 % (34.0-46.0); HGB 12.8 gm/dL (11.4-16.0); Hypochromasia Moderate; Lymphocytes # (A) 2.3 k/uL (1.0-4.8); Lymphocytes % (A) 13 %; MCH 25.1 pg (25.0-35.0); MCHC 30.9 g/dL (31.0-37.0); MCV 81.2 fL (80.0-100.0); Mean Platelet Volume 7.4; Monocytes # (A) 0.7 k/uL (0-1.0); Monocytes % (A) 4 %; Neutrophils # (A) 14.6 k/uL (1.3-7.7); Neutrophils % (A) 82 %; Platelet Count 364 k/uL (150-450); RBC 5.09 m/uL (3.80-5.40); RDW 16.7 % (11.5-15.5); WBC 17.8 k/uL (3.8-10.6)
[2022-01-20 12:31] LABS: Calcium 8.9 mg/dL (8.4-10.2); Potassium 4.3 mmol/L (3.5-5.1)
--- NOTE | 2022-01-20 14:47 | P.PN ---
Subjective Progress Note Date: 01/20/22 Principal diagnosis: Shortness of breath, chest pain. Pulmonary consult dated 01/19/2022. 61-year-old obese female, with a history of COPD, and ongoing tobacco use, as well as diabetes, was transferred down from [facility], for evaluation and our emergency department. The patient is seen in room 22, and complains of increasing shortness of breath. In addition, the patient had some chest discomfort. She apparently was using her breathing medications, without benefit. She was also coughing, producing yellow/green phlegm. Her saturations at the outside hospital were only 84%. In addition, she had an elevated troponin level. For that reason, she was sent down for evaluation, and possible cardiac catheterization. She denied any fever or chills. She was on 2 L in the emergency room. She was getting saline at 110 mL an hour. She complained of shortness of breath, chest pain, and leg swelling. Laboratory data includes a white count of 12.4, hemoglobin 13.3, hematocrit 42, and a platelet count of 331,000. Sodium 137, potassium 4.5, chlorides 100, CO2 28, anion gap 9, BUN 13, creatinine 0.69. Glucose 153. Troponins were 0.11 and 0.098. N-terminal proBNP was elevated at 1010. Chest x-ray showed no acute process, and was consistent with COPD. The patient had a cardiac catheterization which showed a critical thrombotic lesion involving the mid right coronary artery, which apparently was successfully stented. She also had mild disease involving the left coronary system, and a mildly elevated left-sided filling pressure area he was recommended to have dual antiplatelet therapy, using both aspirin and Plavix, as well as aggressive cholesterol control. Progress note dated 01/20/2022. 61-year-old obese female seen in the emergency department yesterday. She has a history of chronic tobacco use, and COPD. The patient underwent cardiac catheterization yesterday. She was found to have a lesion in the right coronary artery, and she had a stent placed. Currently, she is doing recently well. She is on 3 L of oxygen. She's not receiving any IV fluids. Feeling much better, and is very grateful. White count 17.8, hemoglobin 12.8, hematocrit 41.4, and platelet count 364,000. Sodium, potassium, chloride, CO2, are all normal. Anion gap is 14, BUN 21, creatinine 0.84. Objective - Vital Signs Vital signs: Vital Signs Temp 98.1 F 01/20/22 09:45 Pulse 102 H 01/20/22 12:41 Resp 20 01/20/22 13:57 BP 152/80 01/20/22 09:45 Pulse Ox 93 L 01/20/22 09:45 FiO2 Intake & Output 01/19/22 01/20/22 01/20/22 18:59 06:59 18:59 Intake Total 200 1969 118 Balance 200 1969 118 Weight 110.223 kg Intake: IV 200 Intake, IV Titration 1000 Amount Sodium Chloride 0.9% 1, 1000 000 ml In Empty Bag 1 bag @ 1 ML/KG/HR 110.223 mls /hr IV .Q9H5M [facility] Rx#: [id number] Oral 0 970 118 Other: Voiding Method Toilet # Voids 2 - Exam No acute distress, oriented 3. The patient's currently on 3 L, with a sat uration of 95%. HEENT examination is grossly unremarkable. Neck supple. Full range of motion. No adenopathy thyromegaly or neck vein distention. Cardiovascular examination reveals regular rhythm rate. S1-S2 normal. No S3 or S4. No discernible murmur noted. Heart sounds are distant. Heart rate 92 bpm. Lungs reveal diffuse mild to moderate expiratory rhonchi and expiratory wheezes. No crackles. Breath sounds equal bilaterally. Abdomen soft bowel sounds are heard. No masses or tenderness. Extremities are intact. No cyanosis or clubbing. Mild edema is present. Skin is without rash or lesion. Neurologic examination is brief but nonfocal. - Labs CBC & Chem 7: 01/20/22 11:07 01/20/22 11:07 Labs: Abnormal Lab Results - Last 24 Hours (Table) 01/19/22 01/19/22 01/20/22 Range/Units 16:48 19:45 06:01 WBC (3.8-10.6) k/uL MCHC (31.0-37.0) g/dL RDW (11.5-15.5) % Neutrophils # (1.3-7.7) k/uL BUN (7-17) mg/dL POC Glucose (mg/dL) 128 H 132 H 123 H (70-110) mg/dL 01/20/22 01/20/22 Range/Units 11:07 11:07 WBC 17.8 H (3.8-10.6) k/uL MCHC 30.9 L (31.0-37.0) g/dL RDW 16.7 H (11.5-15.5) % Neutrophils # 14.6 H (1.3-7.7) k/uL BUN 21 H (7-17) mg/dL POC Glucose (mg/dL) (70-110) mg/dL Assessment and Plan Assessment: Status post successful stenting of the mid right coronary artery. Shortness of breath, secondary to a COPD exacerbation. Non-ST segment elevation myocardial infarction, acute. History of ongoing tobacco use with nicotine addiction. History of hyperlipidemia. History of diabetes mellitus. Obesity. ADHD. Plan: Plan dated 01/19/2022. The patient is seen and examined in room 22, and emergency room. The patient's currently on a couple liters of oxygen. The patient had a cardiac deuce terization, and had stenting of the right coronary artery. The patient continues on Solu-Medrol, 40 mg twice a day. The patient's also on albuterol and Atrovent updrafts. We'll add some Symbicort 160/4.5, 2 puffs twice a day. We will continue to follow the patient make recommendations were appropriate. The patient is counseled about the importance of smoking cessation. No additional recommendations are made. Plan dated 01/20/2022. The patient appears to be doing relatively well. Labs, x-rays, and medications are reviewed. She had a stent placed in the mid right coronary artery. Her breathing is improved. She's on 3 L of oxygen. She's receiving albuterol sulfate and ipratropium bromide breathing treatments. In addition, she is getting Solu-Medrol, and Symbicort. We will follow along and make recommendations along the way. Prognosis is certainly guarded. Time with Patient: Less than 30
[2022-01-20 16:04] VITALS: BMI 45.9
[2022-01-20 16:38] LABS: Glucose,Whole Blood 158 mg/dL (70-110)
[2022-01-20 19:51] LABS: Glucose,Whole Blood 137 mg/dL (70-110)
[2022-01-20] MEDS: ATORVASTATIN 80 MG TAB PO SCH (20:28)
[2022-01-21] MEDS: HEPARIN SODIUM,PORCINE/PF 5,000 UNIT/0.5 ML SYRINGE SQ SCH ×2 (00:20→08:34)
[2022-01-21] MEDS: IPRATROPIUM-ALBUTEROL 3 ML NEB INHALATION SCH ×3 (03:38→11:24)
[2022-01-21 06:04] LABS: Glucose,Whole Blood 129 mg/dL (70-110)
--- NOTE | 2022-01-21 06:10 | P.PN ---
Subjective Progress Note Date: 01/21/22 Principal diagnosis: Acute coronary syndrome This is a [id number] female patient with diabetes and smoking overweight who presented to the hospital with a chest discomfort and shortness of breath and ruled in for acute coronary syndrome. She underwent a heart catheterization and was found to have a critical disease involving the RCA which was stented. The LVEDP was elevated as well. 01/20/2022 She was sitting this morning. She has been experiencing cough productive of sputum. Pulmonary is on the case. Otherwise she has no chest pain and the shortness of breath has improved. She still hypoxic and requiring 2 L of oxygen to keep saturation above 90. Currently she is on dual antiplatelet therapy along with high intensity statin. She remains slightly tachycardic. I am going to DC metoprolol tartrate and start her on metoprolol succinate The echo revealed no wall motion abnormalities with preserved left ventricular systolic function. I advised monitor the patient for additional 24 hours. Also in the light of elevated left-sided filling pressure start the patient on Lasix 20 mg by mouth daily. Continue monitor the kidney function and electrolytes. Co norman following up with the patient January [id number] The patient was seen this morning. She remains asymptomatic from a cardiovascular standpoint. She remains hemodynamics is stable beside being slightly tachycardic with a resting heart rate around 100 bpm. Her pressure is stable. I'm going to increase the dose of beta justino. Meanwhile continue the rest of the current medical regimen. She is on dual antiplatelet therapy and high intensity statin. The echo revealed preserved LV function. I advised monitor the patient for additional 24 hours. Continue up titrating the dose of beta justino if we need to. Consider nicotine replacement therapy. Follow-up with the patient Objective - Vital Signs Vital signs: Vital Signs Temp 98.4 F 01/21/22 03:54 Pulse 96 01/21/22 03:54 Resp 18 01/21/22 03:54 BP 126/85 01/21/22 03:54 Pulse Ox 96 01/21/22 03:54 FiO2 Intake & Output 01/20/22 01/20/22 01/21/22 06:59 18:59 06:59 Intake Total 6823 255 4586 Balance 3654 537 7968 Weight 110.223 kg Intake: Intake, IV Titration 1000 Amount Sodium Chloride 0.9% 1, 1000 000 ml In Empty Bag 1 bag @ 1 ML/KG/HR 110.223 mls /hr IV .Q9H5M [facility] Rx#: [id number] Oral 183 403 3800 Other: Voiding Method Toilet Toilet # Voids 2 2 - Constitutional General appearance: Present: no acute distress - Respiratory Respiratory: bilateral: CTA - Cardiovascular Rhythm: regular - Labs CBC & Chem 7: 01/20/22 11:07 01/20/22 11:07 Labs: Abnormal Lab Results - Last 24 Hours (Table) 01/20/22 01/20/22 01/20/22 Range/Units 11:07 11:07 16:34 WBC 17.8 H (3.8-10.6) k/uL MCHC 30.9 L (31.0-37.0) g/dL RDW 16.7 H (11.5-15.5) % Neutrophils # 14.6 H (1.3-7.7) k/uL BUN 21 H (7-17) mg/dL POC Glucose (mg/dL) 158 H (70-110) mg/dL 01/20/22 01/21/22 Range/Units 19:50 06:01 WBC (3.8-10.6) k/uL MCHC (31.0-37.0) g/dL RDW (11.5-15.5) % Neutrophils # (1.3-7.7) k/uL BUN (7-17) mg/dL POC Glucose (mg/dL) 137 H 129 H (70-110) mg/dL Assessment and Plan Assessment: Assessment Acute coronary syndrome Smoking Diabetes Preserved LV function Plan Continue dual antiplatelet therapy Increase the dose of beta justino Consider nicotine replacement therapy Monitor the patient for additional 24 hours Follow-up with the patient
[2022-01-21] MEDS: INSULIN ASPART (NovoLOG) 100 UNIT/ML VIAL SQ SCH ×2 (06:45→12:19)
[2022-01-21] MEDS: PANTOPRAZOLE 40 MG TABLET PO SCH (06:46)
[2022-01-21] MEDS: SYMBICORT 160-4.5 MCG INHALER INHALATION SCH (08:03)
[2022-01-21] MEDS: NON FORMULARY DRUG (Dextroamphetamine/Amphetamine [Adderall Xr 15 Mg Capsule] 15 MG Cap.Er PO SCH (08:31)
[2022-01-21] MEDS: FUROSEMIDE 20 MG TAB PO SCH (08:34)
[2022-01-21] MEDS: methylPREDNISolone SOD SUCCI 40 MG/ML 1 ML VIAL IV SCH (08:34)
[2022-01-21] MEDS: SERTRALINE 100 MG TAB PO SCH (08:34)
[2022-01-21] MEDS: CLOPIDOGREL 75 MG TAB PO SCH (08:34)
[2022-01-21] MEDS: LURASIDONE 40 MG TAB PO SCH (08:35)
[2022-01-21] MEDS: ASPIRIN 81 MG PO SCH (08:35)
[2022-01-21] MEDS ORDERED: NICOTINE 14MG/24HR PATCH TRANSDERM SCH (09:00)
[2022-01-21] MEDS ORDERED: METOPROLOL SUCCINATE (ER) 100 MG TAB.ER.24H PO SCH (09:00)
--- NOTE | 2022-01-21 09:47 | P.DS ---
Providers Date of admission: 01/18/22 23:02 Expected date of discharge: 01/21/22 Attending physician: Ruben Vital MD Consults: 01/18/22 22:59 Consult Physician Urgent Consulting Provider: Avi Cameron Consult Reason/Comments: aecopd, hypoxic resp failure Do you want consulting provider notified?: Yes Consult Physician Urgent Consulting Provider: [facility] Consult Reason/Comments: nstemi Do you want consulting provider notified?: Yes 01/19/22 12:39 Consult Physician Routine Consulting Provider: [facility] Consult Reason/Comments: Post Interventional Patient Do you want consulting provider notified?: Already Contacted Primary care physician: Becky Singh DO Hospital Course: The patient is a 61-year-old female with a PMH of COPD, ongoing tobacco abuse, type II DM who was transferred from [facility] where the patient had presented earlier today due to gradually worsening shortness of breath. Reports cough that is worse than usual, productive of yellow-green phlegm. While at [facility], the patient was noted to be hypoxic at 84% and also had an elevated troponin of 0.16. The patient was ultimately transferred to [facility] for cardiology evaluation. Troponin in our emergency room was 0.129, 0.114, 0.098 with EKG had revealed sinus tachycardia at 100 bpm with flattened T waves in leads V5 and V6. Laboratory evaluation was also remarkable for WBC count of 15.2 and glucose 167. Patient underwent cardiac catheterization with stent placement to the RCA. Echo shows EF 55-60% with LVH. Patient was seen and examined this morning. No acute events overnight. Patient reports no chest pain. States that her breathing is at baseline. She remains tachycardic with heart rate in the low 100s. Her metoprolol has been increased from 50 mm by mouth daily to 100 mg by mouth daily. Home O2 eval has been ordered as patient will likely require oxygen on discharge. She is prescribed DuoNeb as needed along with Symbicort and albuterol inhaler. She is prescribed Medrol Dosepak. She is advised to follow- up with pulmonology within 1 week of discharge. Patient is also prescribed aspirin 81 mg by mouth daily, Lipitor 80 mg by mouth daily and Plavix 75 mg, daily along with metoprolol 100 mg by mouth daily, lisinopril 2.5 mg by mouth daily, Lasix 20 g, daily and Nitrostat as needed for chest pain. She is advised to follow-up with cardiology within 1 week of discharge. Plan is to discharge patient home today if her heart rate improves this afternoon. Pertinent studies include echocardiogram Pertinent procedures include cardiac catheterization. General: non toxic, no distress, appears at stated age Derm: warm, dry Head: atraumatic, normocephalic, symmetric Eyes: EOMI, no lid lag, anicteric sclera Mouth: no lip lesion, mucus membranes moist Cardiovascular: S1S2 reg, no murmur, positive posterior tibial pulse bilateral Lungs: Decreased breath sounds bilateral, no rhonchi, no rales , no accessory muscle use Ext: no gross muscle atrophy, no edema, no contractures Neuro: no focal neuro deficits Psych: Alert, oriented, appropriate affect Discharge Diagnosis: #Acute COPD exacerbation #Non-ST elevation DC #Type II DM #ADHD #Morbid obesity This complex discharge took about 40 minutes to complete. Patient Condition at Discharge: Stable Plan - Discharge Summary Discharge Rx Participant: Yes New Discharge Prescriptions: New Clopidogrel [Plavix] 75 mg PO DAILY #90 tab Aspirin 81 mg PO DAILY #90 tab Ipratropium-Albuterol Nebulize [Duoneb 0.5 mg-3 mg/3 ml Soln] 3 ml INHALATION RT-QID PRN #120 each PRN Reason: Shortness Of Breath Or Wheezing Budesonide-Formot 160-4.5 Mcg [Symbicort 160-4.5 Mcg Inhaler] 2 puff INHALATION RT-BID #1 each lisinopriL [Zestril] 2.5 mg PO DAILY #30 tab Albuterol Inhaler [Ventolin Hfa Inhaler] 2 puff INHALATION Q6H PRN #1 PRN Reason: Shortness Of Breath Atorvastatin [Lipitor] 80 mg PO HS #30 tab Furosemide [Lasix] 20 mg PO DAILY #30 tab methylPREDNISolone Dose Pack [Medrol Dose Pack] 4 mg PO DIRECTED #1 packet Nitroglycerin Sl Tabs [Nitrostat] 0.4 mg SUBLINGUAL Q5M PRN #30 tab PRN Reason: Chest Pain Metoprolol Succinate (ER) [Toprol XL] 100 mg PO DAILY #30 tab Continue Albuterol Sulfate [Ventolin HFA] 2 puff INHALATION RT-Q4H PRN PRN Reason: Shortness Of Breath metFORMIN HCL 500 mg PO BID Lurasidone [Latuda] 40 mg PO DAILY Omeprazole Magnesium [PriLOSEC OTC] 20 mg PO DAILY PRN PRN Reason: GERD Sertraline [Zoloft] 200 mg PO DAILY Dextroamphetamine/Amphetamine [Adderall Xr 15 mg Capsule] 15 mg PO DAILY Discontinued Atorvastatin [Lipitor] 10 mg PO HS Discharge Medication List Albuterol Sulfate [Ventolin HFA] 2 puff INHALATION RT-Q4H PRN 01/19/22 [History] Aspirin 81 mg PO DAILY #90 tab 01/19/22 [Rx] Clopidogrel [Plavix] 75 mg PO DAILY #90 tab 01/19/22 [Rx] Dextroamphetamine/Amphetamine [Adderall Xr 15 mg Capsule] 15 mg PO DAILY 01/19/22 [History] Lurasidone [Latuda] 40 mg PO DAILY 01/19/22 [History] Omeprazole Magnesium [PriLOSEC OTC] 20 mg PO DAILY PRN 01/19/22 [History] Sertraline [Zoloft] 200 mg PO DAILY 01/19/22 [History] metFORMIN HCL 500 mg PO BID 01/19/22 [History] Albuterol Inhaler [Ventolin Hfa Inhaler] 2 puff INHALATION Q6H PRN #1 01/21/22 [Rx] Atorvastatin [Lipitor] 80 mg PO HS #30 tab 01/21/22 [Rx] Budesonide-Formot 160-4.5 Mcg [Symbicort 160-4.5 Mcg Inhaler] 2 puff INHALATION RT-BID #1 each 01/21/22 [Rx] Furosemide [Lasix] 20 mg PO DAILY #30 tab 01/21/22 [Rx] Ipratropium-Albuterol Nebulize [Duoneb 0.5 mg-3 mg/3 ml Soln] 3 ml INHALATION RT-QID PRN #120 each 01/21/22 [Rx] Metoprolol Succinate (ER) [Toprol XL] 100 mg PO DAILY #30 tab 01/21/22 [Rx] Nitroglycerin Sl Tabs [Nitrostat] 0.4 mg SUBLINGUAL Q5M PRN #30 tab 01/21/22 [Rx] lisinopriL [Zestril] 2.5 mg PO DAILY #30 tab 01/21/22 [Rx] methylPREDNISolone Dose Pack [Medrol Dose Pack] 4 mg PO DIRECTED #1 packet 01/21/22 [Rx] Follow up Appointment(s)/Referral(s): Shaun Stern MD [STAFF PHYSICIAN] - 1 Week Becky Singh DO [Primary Care Provider] - 1-2 days Avi Cameron DO [Doctor of Osteopathic Medicine] - 1 Week Activity/Diet/Wound Care/Special Instructions: Diet: Cardiac FU with PCP within 1-2 days of DC. FU with Cardiology within 1 week of DC. FU with Pulmonology within 1 week of DC. Take all medications as advised. Come back to the ED for worsening CP, SOB, palpitations, lightheadedness. Discharge Disposition: HOME SELF-CARE
[2022-01-21 09:57] VITALS: TEMP 97.8
[2022-01-21 11:21] VITALS: BP 142/88; RESP 22
--- NOTE | 2022-01-21 13:06 | P.PN ---
Subjective Progress Note Date: 01/21/22 Principal diagnosis: Shortness of breath, chest pain. Pulmonary consult dated 01/19/2022. 61-year-old obese female, with a history of COPD, and ongoing tobacco use, as well as diabetes, was transferred down from [facility], for evaluation and our emergency department. The patient is seen in room 22, and complains of increasing shortness of breath. In addition, the patient had some chest discomfort. She apparently was using her breathing medications, without benefit. She was also coughing, producing yellow/green phlegm. Her saturations at the outside hospital were only 84%. In addition, she had an elevated troponin level. For that reason, she was sent down for evaluation, and possible cardiac catheterization. She denied any fever or chills. She was on 2 L in the emergency room. She was getting saline at 110 mL an hour. She complained of shortness of breath, chest pain, and leg swelling. Laboratory data includes a white count of 12.4, hemoglobin 13.3, hematocrit 42, and a platelet count of 331,000. Sodium 137, potassium 4.5, chlorides 100, CO2 28, anion gap 9, BUN 13, creatinine 0.69. Glucose 153. Troponins were 0.11 and 0.098. N-terminal proBNP was elevated at 1010. Chest x-ray showed no acute process, and was consistent with COPD. The patient had a cardiac catheterization which showed a critical thrombotic lesion involving the mid right coronary artery, which apparently was successfully stented. She also had mild disease involving the left coronary system, and a mildly elevated left-sided filling pressure area he was recommended to have dual antiplatelet therapy, using both aspirin and Plavix, as well as aggressive cholesterol control. Progress note dated 01/20/2022. 61-year-old obese female seen in the emergency department yesterday. She has a history of chronic tobacco use, and COPD. The patient underwent cardiac catheterization yesterday. She was found to have a lesion in the right coronary artery, and she had a stent placed. Currently, she is doing recently well. She is on 3 L of oxygen. She's not receiving any IV fluids. Feeling much better, and is very grateful. White count 17.8, hemoglobin 12.8, hematocrit 41.4, and platelet count 364,000. Sodium, potassium, chloride, CO2, are all normal. Anion gap is 14, BUN 21, creatinine 0.84. Progress note dated 01/21/2022. 61-year-old female seen 2 days ago consultation. She came into the emergency room, with shortness of breath and chest pain. She had a catheterization and she had a stent placed in the mid right coronary artery. She is possibly being discharged home today. She's currently on 2 L of oxygen. We are trying to set up home O2 for her. She's not receiving any IV fluids. She does have a nicotine patch on. We counseled her about the importance of smoking cessation. No new labs today other than a glucose of 129. Objective - Vital Signs Vital signs: Vital Signs Temp 97.8 F 01/21/22 08:30 Pulse 100 01/21/22 11:36 Resp 22 01/21/22 11:20 BP 142/88 01/21/22 11:20 Pulse Ox 94 L 01/21/22 11:20 FiO2 Intake & Output 01/20/22 01/21/22 01/21/22 18:59 06:59 18:59 Intake Total 118 1080 Balance 118 1080 Weight 110.223 kg Intake: Oral 118 1080 Other: Voiding Method Toilet Toilet # Voids 2 - Exam No acute distress, oriented 3. The patient's currently on 2 L, with a saturation of 94 %. HEENT examination is grossly unremarkable. Neck supple. Full range of motion. No adenopathy thyromegaly or neck vein distention. Cardiovascular examination reveals regular rhythm rate. S1-S2 normal. No S3 or S4. No discernible murmur noted. Heart sounds are distant. Heart rate 89 bpm. Lungs reveal diffuse mild to moderate expiratory rhonchi and expiratory wheezes. No crackles. Breath sounds equal bilaterally. Abdomen soft bowel sounds are heard. No masses or tenderness. Extremities are intact. No cyanosis or clubbing. Mild edema is present. Skin is without rash or lesion. Neurologic examination is brief but nonfocal. - Labs CBC & Chem 7: 01/20/22 11:07 01/20/22 11:07 Labs: Abnormal Lab Results - Last 24 Hours (Table) 01/20/22 01/20/22 01/21/22 Range/Units 16:34 19:50 06:01 POC Glucose (mg/dL) 158 H 137 H 129 H (70-110) mg/dL Assessment and Plan Assessment: Status post successful stenting of the mid right coronary artery. Shortness of breath, secondary to a COPD exacerbation. Non-ST segment elevation myocardial infarction, acute. History of ongoing tobacco use with nicotine addiction. History of hyperlipidemia. History of diabetes mellitus. Obesity. ADHD. Plan: Plan dated 01/19/2022. The patient is seen and examined in room 22, and emergency room. The patient's currently on a couple liters of oxygen. The patient had a cardiac catheterization, and had stenting of the right coronary artery. The patient continues on Solu-Medrol, 40 mg twice a day. The patient's also on albuterol and Atrovent updrafts. We'll add some Symbicort 160/4.5, 2 puffs twice a day. We will continue to follow the patient make recommendations were appropriate. The patient is counseled about the importance of smoking cessation. No additional recommendations are made. Plan dated 01/20/2022. The patient appears to be doing relatively well. Labs, x-rays, and medications are reviewed. She had a stent placed in the mid right coronary artery. Her breathing is improved. She's on 3 L of oxygen. She's receiving albuterol sulfate and ipratropium bromide breathing treatments. In addition, she is getting Solu-Medrol, and Symbicort. We will follow along and make recommendations along the way. Prognosis is certainly guarded. Plan dated 01/21/2022. The patient is currently being evaluated for home oxygen. She will need a resting room air saturation, and a saturation on room air while walking up and down the hallway. The patient is counseled about the importance of smoking cessation. She is currently wearing a nicotine patch. We would be happy to see the patient in the outpatient setting after discharge, for complete pulmonary function test. Prognosis is guarded. The patient is likely to be discharged home today. Time with Patient: Less than 30
[2022-01-21 13:17] VITALS: PULSE 89
[2022-01-23 08:56] LABS: Glucose,Whole Blood 100 mg/dL (70-110)
== END 2022-01-21 15:11 | disposition home or self-care (01) | DRG 246 ==
LOC: EC 22:14 → 3SCARD 23:02
PROVIDERS: ADMIT Internal Medicine; ATTEND Internal Medicine
PROC: B2111ZZ Fluoroscopy of Multiple Coronary Arteries using Low Osmolar Contrast (ICD-10-PCS; principal; 2022-01-19 10:00)
PROC: 02C03ZZ Extirpation of Matter from Coronary Artery, One Artery, Percutaneous Approach (ICD-10-PCS; principal; 2022-01-19 10:00)
PROC: 4A023N7 Measurement of Cardiac Sampling and Pressure, Left Heart, Percutaneous Approach (ICD-10-PCS; principal; 2022-01-19 10:00)
PROC: 027034Z Dilation of Coronary Artery, One Artery with Drug-eluting Intraluminal Device, Percutaneous Approach (ICD-10-PCS; principal; 2022-01-19 10:00)
DX: I21.4 Non-ST elevation (NSTEMI) myocardial infarction (principal); J96.01 Acute respiratory failure with hypoxia; J44.1 Chronic obstructive pulmonary disease with (acute) exacerbation; Z68.42 Body mass index [BMI] 45.0-49.9, adult; E11.9 Type 2 diabetes mellitus without complications; F90.9 Attention-deficit hyperactivity disorder, unspecified type; I25.10 Atherosclerotic heart disease of native coronary artery without angina pectoris; F17.210 Nicotine dependence, cigarettes, uncomplicated; E78.5 Hyperlipidemia, unspecified; F41.9 Anxiety disorder, unspecified; E66.01 Morbid (severe) obesity due to excess calories; Z79.84 Long term (current) use of oral hypoglycemic drugs; Z79.899 Other long term (current) drug therapy; Z79.82 Long term (current) use of aspirin; Z79.51 Long term (current) use of inhaled steroids; Z79.02 Long term (current) use of antithrombotics/antiplatelets; Z88.8 Allergy status to other drugs, medicaments and biological substances; Z91.040 Latex allergy status; Z71.6 Tobacco abuse counseling
CPT/HCPCS: 36415; 71045; 80048; 80053; 83036; 83880; 84484; 85025; 93005; 93306; 93458; 94640; 94760; 96372; 96374; 99285

== ENCOUNTER 2023-05-23 07:02 | Day surgery (SDC) | payer MEDICARE, OTHER ==
[~2023-05-23 07:02] MED LIST: ALPRAZolam 0.25 MG TAB PO PRN; ALPRAZolam 0.5 MG TAB PO PRN; HEPARIN SODIUM,PORCINE (1 ML) 2,500 UNIT in SODIUM CHLORIDE 0.9% 250 ML IRRIGATION PRN; HEPARIN SODIUM,PORCINE 10,000 UNIT in SODIUM CHLORIDE 0.9% 1,000 ML IRRIGATION PRN; NITROGLYCERIN SL TABS 0.4 MG TAB SUBLINGUAL PRN
[2023-05-23] MEDS: SODIUM CHLORIDE 0.9% 1,000 ML IV ONE (07:16)
[2023-05-23 07:32] LABS: Glucose,Whole Blood 118 mg/dL (70-110)
[2023-05-23] MEDS: ATORVASTATIN 80 MG TAB PO STA (07:38)
[2023-05-23] MEDS: SODIUM CHLORIDE 0.9% 1,000 ML in EMPTY BAG 1 BAG IV SCH (07:38)
[2023-05-23] MEDS: ASPIRIN 325 MG TAB PO STA (07:38)
[2023-05-23] MEDS: CLOPIDOGREL 75 MG TAB ONE (07:39)
[2023-05-23 07:41] VITALS: TEMP 98.5
[2023-05-23 07:44] LABS: Basophils % (A) 0 %; Eosinophils # (A) 0.4 k/uL (0-0.7); Eosinophils % (A) 3 %; HCT 39.2 % (34.0-46.0); HGB 12.4 gm/dL (11.4-16.0); Hypochromasia Slight; Lymphocytes # (A) 2.9 k/uL (1.0-4.8); Lymphocytes % (A) 21 %; MCH 25.3 pg (25.0-35.0); MCHC 31.5 g/dL (31.0-37.0); MCV 80.2 fL (80.0-100.0); Mean Platelet Volume 7.9; Monocytes # (A) 0.5 k/uL (0-1.0); Monocytes % (A) 4 %; Neutrophils # (A) 10.2 k/uL (1.3-7.7); Neutrophils % (A) 72 %; Platelet Count 372 k/uL (150-450); RBC 4.89 m/uL (3.80-5.40); RDW 15.4 % (11.5-15.5); WBC 14.2 k/uL (3.8-10.6)
[2023-05-23 07:57] LABS: African American GFR (CKD) >90 (>60 ml/min/1.73 sqM); Anion Gap 6 mmol/L; Blood Urea Nitrogen 17 mg/dL (7-17); Calcium 8.7 mg/dL (8.4-10.2); Carbon Dioxide 25 mmol/L (22-30); Chloride 109 mmol/L (98-107); Glucose 116 mg/dL (74-99); Non-African American GFR(CKD) >90 (>60 ml/min/1.73 sqM); Sodium 140 mmol/L (137-145)
[2023-05-23 08:00] LABS: Potassium 4.8 mmol/L (3.5-5.1)
[2023-05-23] MEDS ORDERED: HEPARIN SODIUM 1,000 UN/ML (10ML VL) ONE (10:22)
[2023-05-23] MEDS ORDERED: VERAPAMIL 2.5 MG/ML 2 ML AMP ONE (10:22)
[2023-05-23] MEDS: MIDAZOLAM 2 MG/2 ML VIAL IVP ONE ×2 (10:45→11:05)
[2023-05-23] MEDS: LIDOCAINE 1% INJ 10MG/ML (20 ML MDV) SQ ONE (11:18)
[2023-05-23] MEDS: VERAPAMIL SYRINGE (5 MG/10 ML) INTRAARTER ONE (11:22)
[2023-05-23] MEDS: HEPARIN SODIUM 1,000 UN/ML (10ML VL) IVP ONE (11:22)
[2023-05-23] MEDS ORDERED: RX INFO: IV CONTRAST WAS GIVEN 1 EACH MISC MISCELLANE PRN (11:27)
[2023-05-23] MEDS ORDERED: SODIUM CHLORIDE 0.9% 1,000 ML IV SCH (11:30)
--- NOTE | 2023-05-23 11:32 | P.PCN ---
Date of Procedure: 05/23/23 Operative Findings: CARDIAC CATHETERIZATION PERFORMING PHYSICIAN: Shaun Stern MD, RPVI PROCEDURE PERFORMED: 1. Selective right and left coronary angiogram 2. Left heart catheterization 3. Ultrasound-guided access of the right radial artery INDICATION: Chest discomfort concerning for angina COMPLICATION: None APPROACH: Right radial artery LEVEL OF SEDATION: Moderate with a sedation length of 10 minutes PROCEDURE DESCRIPTION: After obtaining an informed consent, the patient was brought to cardiac laboratory chief. Local anesthesia was performed using lidocaine subcutaneously. The right radial artery was cannulated using micropuncture technique under ultrasound guidance and the micropuncture wire passed easily then placed a 6-Croatian sheath over the wire. Subsequently the sheath was flushed and secured. Following that, 2 mg of verapamil along with 5000 unit heparin were given. Selective right and left coronary angiogram using a 6-Croatian JR4 and JL 3.5 catheters. Following that we did left heart catheterization using 6-Croatian pigtail catheter. The procedure was completed there was no complication. SELECTIVE CORONARY ANGIOGRAM: The right coronary artery: Large-caliber vessel and dominant vessel with mild disease distal to the stented segment unchanged compared to before Left main: Has mild disease only The left circumflex: Large caliber vessel nondominant vessel appears to be angiographically normal and gives rise into a large OM appeared to be normal The left anterior descending artery: Large-caliber vessel appears to be normal and gives rise into a large diagonal branch which appears to be normal HEMODYNAMICS: The LVEDP is 16 mmHg was no gradient across aortic valve CONCLUSION: 1. Patent stent in the mid RCA was mild disease involving the distal edge of the stent appeared to be unchanged compared to before 2. Normal left-sided filling pressure POSTPROCEDURE MANAGEMENT: Medical treatment
[2023-05-23 12:08] VITALS: RESP 18
[2023-05-23 14:50] VITALS: BP 111/56; PULSE 82
== END 2023-05-23 15:32 | disposition home or self-care (01) ==
LOC: CATHCVL 07:02
PROVIDERS: ATTEND Internal Medicine Interventional Cardiology
DX: I25.10 Atherosclerotic heart disease of native coronary artery without angina pectoris (principal); I10 Essential (primary) hypertension; E78.5 Hyperlipidemia, unspecified; E11.9 Type 2 diabetes mellitus without complications; Z79.84 Long term (current) use of oral hypoglycemic drugs; Z79.899 Other long term (current) drug therapy; F17.200 Nicotine dependence, unspecified, uncomplicated; Z79.82 Long term (current) use of aspirin
CPT/HCPCS: 93458; 76937; 80048; 85025; C1769; C1894; J2250; J2001; J1644

== ENCOUNTER 2023-10-12 09:24 | Day surgery (SDC) | payer MEDICARE, OTHER ==
[2023-10-09 12:31] VITALS: BMI 43.8
[~2023-10-12 09:24] MED LIST changes: -ALPRAZolam 0.25 MG TAB PO PRN; -ALPRAZolam 0.5 MG TAB PO PRN; -HEPARIN SODIUM,PORCINE (1 ML) 2,500 UNIT in SODIUM CHLORIDE 0.9% 250 ML IRRIGATION PRN; -HEPARIN SODIUM,PORCINE 10,000 UNIT in SODIUM CHLORIDE 0.9% 1,000 ML IRRIGATION PRN; +LIDOCAINE 1% (10MG/ML) FOR IV START INTRADERMA PRN; -NITROGLYCERIN SL TABS 0.4 MG TAB SUBLINGUAL PRN
[2023-10-12 09:46] VITALS: TEMP 98.8
[2023-10-12] MEDS: IV FLUID CONTINUATION 1,000 ML IV ONE (09:58)
[2023-10-12] MEDS: LACTATED RINGERS 1,000 ML IV SCH (09:58)
[2023-10-12 10:03] LABS: Glucose,Whole Blood 113 mg/dL (70-110)
[2023-10-12] MEDS: NA PHOS,M-B/NA PHOS,DI-BA 133 ML ENEMA RECTAL STA ×2 (10:09→10:18)
[2023-10-12] MEDS ORDERED: PROPOFOL 10 MG/ML 20 ML VIAL IV ONE (10:35)
--- NOTE | 2023-10-12 10:56 | P.PCN ---
Date of Procedure: 10/12/23 Procedure(s) Performed: BRIEF HISTORY: Patient is a 63-year-old pleasant White female scheduled for an elective colonoscopy as a part of evaluation of abdominal pain and change in bowel habits and chronic constipation has been progressively getting worse the last 6 months duration. PROCEDURE PERFORMED: Colonoscopy. PREOPERATIVE DIAGNOSIS: Abdominal pain and change in bowel habits. IV sedation per Anesthesia. PROCEDURE: After informed consent was obtained, the patient, was brought into the endoscopy unit. IV sedation was administered by Anesthesia under continuous monitoring. Digital rectal examination was normal. Initially the Olympus CF-160 flexible video colonoscope was then inserted in the rectum, gradually advanced into the cecum without any difficulty. Careful examination was performed as the scope was gradually being withdrawn. Ileocecal valve and the appendiceal orifice were visualized and appeared normal. Prep was Fair.. Mucosa of the cecum, ascending colon, transverse colon, descending colon, sigmoid colon, and rectum appeared normal. Retroflexion was performed in the rectum and no lesions were seen. The patient tolerated the procedure well. IMPRESSION: Normal-appearing colon from rectum to cecum With no emesis of colorectal neoplasia RECOMMENDATIONS: Findings of this examination were discussed with the patient As well as her family. She was advised to continue to truelance andl lactulose daily. Follow up in office in 2-3 weeks. Recommend repeat screen colonoscopy in 10 years.
[2023-10-12 11:05] VITALS: RESP 16
[2023-10-12 11:17] VITALS: BP 121/58; PULSE 87
== END 2023-10-12 11:43 | disposition home or self-care (01) ==
LOC: ORWHC2ENDO 09:24
PROVIDERS: ATTEND Internal Medicine Gastroenterology
DX: K21.9 Gastro-esophageal reflux disease without esophagitis (principal); I10 Essential (primary) hypertension; E78.5 Hyperlipidemia, unspecified; J44.9 Chronic obstructive pulmonary disease, unspecified; F17.210 Nicotine dependence, cigarettes, uncomplicated; E11.9 Type 2 diabetes mellitus without complications; F41.9 Anxiety disorder, unspecified; Z79.899 Other long term (current) drug therapy; Z79.02 Long term (current) use of antithrombotics/antiplatelets; Z88.8 Allergy status to other drugs, medicaments and biological substances; Z91.040 Latex allergy status; Z79.84 Long term (current) use of oral hypoglycemic drugs
CPT/HCPCS: J2704; G0121; 45378

== ENCOUNTER → 2024-08-04 | Outpatient (CLI) | payer MEDICARE ==
--- NOTE | 2024-08-04 11:15 | XR ---
EXAMINATION TYPE: XR abdomen 2V DATE OF EXAM: 08/04/2024 10:26 AM COMPARISON: None CLINICAL INDICATION: Female, 63 years old with history of K58.1 IRRITABLE BOWEL SYNDROME WITH CONSTIP ATION; [facility] TECHNIQUE: Two views of the abdomen were obtained. FINDINGS: Moderate amount stool throughout the colon. The bowel gas pattern is nonspecific without d ilated loops of small or large bowel. . Fecal material and gas are demonstrated throughout the colon and rectum. There is no evidence for organomegaly or pneumoperitoneum. No acute osseous process. No abnormal calcifications are present. IMPRESSION: Moderate stool burden, Nonspecific bowel gas pattern without radiographic evidence for acute process. [facility], , 08/04/2024 11:13 AM
== END | disposition home or self-care (01) ==
LOC: RADXRMAIN 10:11
PROVIDERS: ATTEND Internal Medicine Gastroenterology
DX: K58.1 Irritable bowel syndrome with constipation (principal)
CPT/HCPCS: 74019

== ENCOUNTER → 2024-08-29 | Outpatient (CLI) | payer MEDICARE ==
--- NOTE | 2024-08-29 12:16 | FL ---
EXAMINATION TYPE: FL UGI air w small bowel DATE OF EXAM: 08/29/2024 10:44 AM COMPARISON: 08/04/2024 CLINICAL INDICATION:Female, 63 years old with history of R10.9 UNSPECIFIED ABDOMINAL PAIN; TECHNIQUE: The procedure was explained and patient history elicited. All patient questions were ans wered prior to start of procedure. A manpower development advisor radiograph of the abdomen was also reviewed. Multiple flu oroscopic spot images of the esophagus, stomach and duodenum were obtained following ingestion of liq uid barium and EZ-gas crystals. After the completion of the upper gastrointestinal examination, a de tailed small bowel examination was performed. The patient was asked to ingest additional liquid maria e um and incremental frontal abdominal radiographs were then taken until contrast was visualized in the cecum. DAP: NOT REPORTED [id number] FINDINGS: Fixation hardware in the cervical spine appear intact. Free flow of contrast throughout the esophagus into the stomach. The esophagus appears unremarkable without evidence of focal stricture, ulceration or abnormal outpou shahzad. No hiatal hernia was visualized. No evidence of gastroesophageal reflux was seen when the p atient was instructed to bear down. The stomach and duodenum demonstrate a normal course and contour. There is no evidence of focal gastric or duodenal ulceration, stricture, or abnormal outpouching. S mall bowel mucosal folds are felt to be within normal limits. Detailed small bowel examination: Contrast is seen extending from the duodenojejunal junction into the cecum after 30 minutes, which is within the expected time period. The small bowel follows normal distribution and contour without an y evidence of extraluminal or intraluminal irregularity. There is no displacement of bowel loops or extraluminal extravasation of contrast material. IMPRESSION: 1. Normal upper gastrointestinal examination. 2. Fast transit of contrast through the small bowel otherwise normal small bowel examination. [facility], , 08/29/2024 12:13 PM
== END | disposition home or self-care (01) ==
LOC: RADFLMAIN 08:38
PROVIDERS: ATTEND Internal Medicine Gastroenterology
DX: R10.9 Unspecified abdominal pain (principal)
CPT/HCPCS: 74240; 74248